=== PATIENT | male | born 1955 | race Caucasian/White ===

== ENCOUNTER 2017-05-30 17:23 | Emergency (ER) | payer BC ==
[2017-05-30 17:41] VITALS: BP 166/91
--- NOTE | 2017-05-30 17:44 | UC ---
Cardiac HPI - HPI Summary HPI Summary: patient presents with epigastric pain no nausea--had some diarrhea the past few days-no SOB or sweating with pain no relief with antacids pain has continued through the day - History of Current Complaint Chief Complaint: UCAbdominalPain Stated Complaint: CHEST PAIN Time Seen by Provider: 05/30/17 17:24 Hx Obtained From: Patient Onset/Duration: Sudden Onset, Lasting Hours - 8 Timing: Constant Initial Severity: Moderate Current Severity: Moderate Pain Intensity: 6 - epigastric pain Chest Pain Location: Discrete at:, Lower Sternal Aggravating Factor(s): Nothing Alleviating Factor(s): Nothing Associated Signs & Symptoms: Positive: Negative - Allergy/Home Medications Allergies/Adverse Reactions: Allergies Allergy/AdvReac Type Severity Reaction Status Date / Time No Known Allergies Allergy Verified 05/30/17 17:30 Home Medications: Home Medications Amitriptyline TAB* [Elavil TAB*] 25 mg PO BEDTIME 05/30/17 [History Confirmed ] Diphenoxylat/Atrop 2.5-0.025M* [Lomotil TAB*] 1 tab PO QID PRN 05/30/17 [ History Confirmed 05/30/17] Fluvastatin Sodium [Lescol] 40 mg PO DAILY 05/30/17 [History Confirmed 05/30/17] Lactobacillus [Probiotic] 1 cap PO 05/30/17 [History] Lisinopril TAB* [Prinivil TAB*] 20 mg PO DAILY 05/30/17 [History Confirmed 05/30] Loratadine [Claritin 10 MG CAP] 10 mg PO PRN 05/30/17 [History] Methylcellulose (Laxative) [Citrucel Fiber Laxative] 1 pow PO 05/30/17 [History] [place]-3 Fatty Acids [Fish Oil] 1,000 mg PO DAILY 05/30/17 [History Confirmed 09/11] Pseudoephedrine TAB* [Sudafed TAB*] PRN 05/30/17 [History] Tadalafil [Cialis] 2.5 mg PO DAILY 05/30/17 [History Confirmed 05/30/17] Tamsulosin CAP* [Flomax CAP*] 0.4 mg PO DAILY 05/30/17 [History Confirmed ] PMH/Surg Hx/FS Hx/Imm Hx Previously Healthy: No Endocrine History: Dyslipidemia Cardiovascular History: Cardiac Disease, Hypertension - Surgical History Surgical History: Yes Surgery Procedure, Year, and Place: HEART CATH 2008 APPENDECTOMY, TONSILECTOMY BILATERAL ATHROSCOPIC KNEES, SINUS SURGERY - Family History Known Family History: Positive: None - Social History Occupation: Employed Full-time Lives: With Family Alcohol Use: None Substance Use Type: Cocaine Smoking Status (MU): Never Smoked Tobacco Review of Systems Constitutional: Negative Skin: Negative Eyes: Negative ENT: Negative Respiratory: Negative Cardiovascular: Other - epigastric pain no relief with antacids no change with palpation Gastrointestinal: Diarrhea Genitourinary: Negative Motor: Negative Neurovascular: Negative Musculoskeletal: Negative Neurological: Negative Psychological: Negative Is Patient Immunocompromised?: No All Other Systems Reviewed And Are Negative: Yes Physical Exam Triage Information Reviewed: Yes Appearance: Well-Appearing, No Pain Distress, Well-Nourished Vital Signs Reviewed: Yes Eye Exam: Normal Eyes: Positive: Conjunctiva Clear ENT Exam: Normal ENT: Positive: Normal ENT inspection, Hearing grossly normal, Pharynx normal, TMs normal, Uvula midline. Negative: Nasal congestion, Nasal drainage, Tonsillar swelling, Tonsillar exudate, Trismus, Muffled voice, Hoarse voice, Dental tenderness, Sinus tenderness Dental Exam: Normal Neck exam: Normal Neck: Positive: Supple, Nontender, No Lymphadenopathy Respiratory Exam: Normal Respiratory: Positive: Chest non-tender, Lungs clear, Normal breath sounds, No respiratory distress, No accessory muscle use Cardiovascular Exam: Normal Cardiovascular: Positive: RRR, No Murmur, Pulses Normal, Brisk Capillary Refill Abdominal Exam: Normal Abdomen Description: Positive: No Organomegaly, Soft, Other: - episastric pain. Negative: Distended, Guarding, Hernia @, Hepatomegaly, McBurney's Point Tenderness Bowel Sounds: Positive: Present Musculoskeletal Exam: Normal Musculoskeletal: Positive: Strength Intact, ROM Intact, No Edema Neurological Exam: Normal Neurological: Positive: Alert, Muscle Tone Normal Psychological Exam: Normal Skin Exam: Normal Diagnostics - EKG Cardiac Rate: NL Cardiac Rhythm: Sinus: Normal, LBBB: Normal Ectopy: None ST Segment: Normal - Assessment/Plan Course Of Treatment: to [facility] for comprehensive cardiac evaluation - Clinical Impression Provider Diagnoses: epigastric pain - Physician Notifications Time Discussed With Above Provider: 17:54 - Rosita Steinberg Instructed by Provider To: Transfer Discharge - Discharge Plan Condition: Fair Disposition: AGAINST MEDICAL ADVICE Discharge Disposition Comment: By car with driving to [facility] Referrals: Sánchez Lora DO [Primary Care Provider] -
== END 2017-05-30 17:50 | disposition left against medical advice (07) ==
LOC: UCCORT 17:23
DX: R10.13 Epigastric pain (principal); R19.7 Diarrhea, unspecified; R07.9 Chest pain, unspecified; I10 Essential (primary) hypertension
CPT/HCPCS: 93005; 99212; G0463